=== PATIENT | male | born 1965 | race Caucasian/White ===

== ENCOUNTER 2018-09-25 18:27 | Inpatient (IN) | payer BC ==
[~2018-09-25] VITALS: Ht 157.5 cm; Wt 55.5 kg
--- NOTE | 2018-09-25 18:45 | NUR ---
noted retraction of ribs to left scapular area, and subq ephasema, spoke to BERYL Lopez who ordered Chest Xray, changed pt to level 3
[2018-09-25] MEDS ORDERED: HYDROcodone/acetaminophen 10/325mg tab PO ONE (19:40)
[2018-09-25] MEDS ORDERED: iohexol 300mg/ml 100ml inj. ONE (19:50)
--- NOTE | 2018-09-25 19:52 | NUR ---
Pt transported to CT scan via wheelchair.
[2018-09-25] MEDS ORDERED: NO HOME MEDS (20:21)
--- NOTE | 2018-09-25 20:51 | NUR ---
PT MOVED FROM FAST TRACK TO ED BED 16 FOR ADMISSION AND FURTHER MONITORING.
--- NOTE | 2018-09-25 20:59 | NUR ---
pt moved from bed [facility] to 16 by lenora Lake
[2018-09-25] MEDS ORDERED: temazepam 15mg capsule PO PRN (21:00)
[2018-09-25 21:10] LABS: BASOPHILS % (AUTO) 0.1 % (0-1); EOSINOPHILS % (AUTO) 0.2 % (0-6); HEMATOCRIT 37.9 % (42.0-52.0); HEMOGLOBIN 13.1 g/dl (14.0-17.9); LYMPHOCYTES # (AUTO) 1.2 X10'3 (1.1-4.8); LYMPHOCYTES % (AUTO) 9.4 % (21-51); MEAN CORPUSCULAR HEMOGLOBIN 32.2 PG (27.0-31.0); MEAN CORPUSCULAR HGB CONC 34.5 g/dL (33.0-36.5); MEAN CORPUSCULAR VOLUME 93.2 FL (78-98); MEAN PLATELET VOLUME 6.3 FL (7.4-10.4); MONOCYTES # (AUTO) 0.9 X10'3 (0-0.9); MONOCYTES % (AUTO) 6.8 % (2-12); NEUTROPHILS # (AUTO) 10.5 X10'3 (1.8-7.7); NEUTROPHILS % (AUTO) 83.5 % (42-75); PLATELET COUNT 244 X10'3 (140-440); RED BLOOD COUNT 4.06 X10'6 (4.70-6.10); RED CELL DISTRIBUTION WIDTH 12.7 % (11.5-14.5); WHITE BLOOD COUNT 12.6 X10'3 (4.5-11.0)
[2018-09-25 21:23] LABS: ALANINE AMINOTRANSFERASE 24 U/L (12-78); ALBUMIN 3.6 G/DL (3.4-5.0); ALBUMIN/GLOBULIN RATIO 1.1 (1.1-1.5); ALKALINE PHOSPHATASE 77 IU/L (46-116); ANION GAP 11 (8-16); ASPARTATE AMINO TRANSFERASE 30 U/L (10-37); BILIRUBIN,TOTAL 0.6 MG/DL (0.1-1.0); BLOOD UREA NITROGEN 11 MG/DL (7-18); BUN/CREATININE RATIO 12.4 (5.4-32.0); CALCIUM 8.4 MG/DL (8.5-10.1); CHLORIDE 99 MMOL/L (99-107); CREATINE KINASE 284 U/L (39-308); CREATININE 0.89 MG/DL (0.60-1.10); ETHANOL 0.054 GM/DL (0.0-0.010); GLUCOSE 94 MG/DL (70-104); POTASSIUM 3.8 MMOL/L (3.5-5.1); SODIUM 133 MMOL/L (135-145); TOTAL CARBON DIOXIDE 23.1 MMOL/L (24-32); TOTAL PROTEIN 6.8 G/DL (6.4-8.2); eGFR 89 ML/MIN
[2018-09-25 21:24] LABS: PARTIAL THROMBOPLASTIN TIME 27 SECONDS (22-32)
[2018-09-25 22:00] LABS: CLARITY,URINE CLEAR (Clear); COLOR,URINE YELLOW (Yellow); GLUCOSE, URINE NEGATIVE (Neg); KETONES,URINE NEGATIVE (Neg); LEUKOCYTE ESTERASE ,URINE NEGATIVE (Neg); NITRITES, URINE NEGATIVE (Neg); OCCULT BLOOD,URINE TRACE-INTACT (Neg); PROTEIN,URINE NEGATIVE (Neg); UROBILINOGEN,URINE 0.2 E.U/dL (0.2-1.0)
[2018-09-25 22:01] LABS: UA COLLECTION TYPE VOIDED
[2018-09-25 22:03] LABS: URINE AMPHETAMINE SCREEN NEGATIVE (Neg); URINE BARBITUATE SCREEN NEGATIVE (Neg); URINE BENZODIAZEPINES SCREEN NEGATIVE (Neg); URINE CANNABINOID SCREEN NEGATIVE (Neg); URINE COCAINE SCREEN NEGATIVE (Neg); URINE METHADONE SCREEN NEGATIVE (Neg); URINE OPIATE SCREEN POSITIVE (Neg); URINE PHENCYCLIDINE SCREEN NEGATIVE (Neg)
[2018-09-25 22:14] LABS: BACTERIA,URINE NONE SEEN /HPF (Neg); RBC,URINE 0-2 /HPF (0-2); SQUAMOUS EPITHELIAL CELL,UR FEW /LPF (FEW); WBC,URINE 0-4 /HPF (0-4)
[2018-09-25 22:15] LABS: MUCUS STRANDS FEW /LPF (Neg)
[2018-09-25] MEDS ORDERED: magnesium 2GM in 50ml NS 50 ML IV PRN (23:10)
[2018-09-25] MEDS ORDERED: magnesium Cl slow-release 64mg tablet PO PRN (23:10)
[2018-09-25] MEDS ORDERED: magnesium hydroxide 30ml (MOM) UD suspension PO PRN (23:10)
[2018-09-25] MEDS ORDERED: potassium Cl 20 mEq SR tablet PO PRN ×2 (23:10)
[2018-09-25] MEDS ORDERED: bisacodyl 10mg suppository rectal RC PRN (23:10)
[2018-09-25] MEDS ORDERED: potassium CL 10mEq/100ml bag 100 ML IV PRN ×2 (23:10)
[2018-09-25] MEDS ORDERED: magnesium 4gm in 100ml NS 100 ML IV PRN (23:10)
[2018-09-25] MEDS ORDERED: morphine 2 MG/ML inj. syringe IV PRN (23:10)
[2018-09-25] MEDS ORDERED: ondansetron/PF 4mg/2ml inj IV PRN (23:10)
[2018-09-25] MEDS ORDERED: acetaminophen 325mg tablet PO PRN (23:10)
--- NOTE | 2018-09-25 23:50 | NUR ---
CALLED REPORT TO SURGICAL , REPORT GIVEN PT CONDITION AND TREATMENT PLAN DISCUSSED . RN AGREES TO ASSUME CARE OF PATIENT. PATIENT TRANSPORTED VIA WHEELCHAIR TO FLOOR BY PLATE MOUNTER.
[2018-09-26] VITALS: BP 122/65
[2018-09-26] MEDS: HYDROcodone/acetaminophen 5mg/325mg tablet PO PRN ×2 (00:11→04:42)
[2018-09-26 05:43] LABS: ALBUMIN 3.4 G/DL (3.4-5.0); ANION GAP 6 (8-16); BLOOD UREA NITROGEN 11 MG/DL (7-18); BUN/CREATININE RATIO 11.6 (5.4-32.0); CALCIUM 9.1 MG/DL (8.5-10.1); CHLORIDE 103 MMOL/L (99-107); CREATININE 0.95 MG/DL (0.60-1.10); GLUCOSE 89 MG/DL (70-104); POTASSIUM 4.1 MMOL/L (3.5-5.1); SODIUM 138 MMOL/L (135-145); TOTAL CARBON DIOXIDE 28.8 MMOL/L (24-32); eGFR 82 ML/MIN
[2018-09-26 05:45] LABS: BASOPHILS % (AUTO) 0.2 % (0-1); EOSINOPHILS # (AUTO) 0.2 X10'3 (0-0.9); EOSINOPHILS % (AUTO) 1.7 % (0-6); HEMATOCRIT 38.6 % (42.0-52.0); HEMOGLOBIN 13.3 g/dl (14.0-17.9); LYMPHOCYTES # (AUTO) 3.6 X10'3 (1.1-4.8); MEAN CORPUSCULAR HEMOGLOBIN 32.4 PG (27.0-31.0); MEAN CORPUSCULAR HGB CONC 34.4 g/dL (33.0-36.5); MEAN CORPUSCULAR VOLUME 94.2 FL (78-98); MEAN PLATELET VOLUME 6.7 FL (7.4-10.4); MONOCYTES # (AUTO) 1.1 X10'3 (0-0.9); MONOCYTES % (AUTO) 11.5 % (2-12); NEUTROPHILS % (AUTO) 50.6 % (42-75); PLATELET COUNT 250 X10'3 (140-440)
--- NOTE | 2018-09-26 06:41 | NUR ---
Problems reprioritized. Patient report given, questions answered & plan of care reviewed with Catarino HANSON.
[2018-09-26 07:43] VITALS: BP 105/64
[2018-09-26] MEDS ORDERED: K and/or MAG REPLACEMENT MC SCH (08:00)
[2018-09-26] MEDS ORDERED: docusate sod 100mg capsule PO SCH (08:00)
[2018-09-26] MEDS ORDERED: HYDR-4383 PO (10:34)
[2018-09-26 11:00] VITALS: BP 125/74
--- NOTE | 2018-09-26 12:45 | NUR ---
Patient discharge was done with patient, patient was given medication RX and understands the use of the medication. Patient agreed to follow up in one weeks time and will have shifts at work covered Patient IV was taken out at this time, IV canula was whole and intact upon discharge. Patient left in private vehicle with friend
[2018-09-26] MEDS ORDERED: famotidine 20mg tablet PO SCH (21:00)
== END 2018-09-26 12:50 | disposition home or self-care (01) | DRG 200 ==
LOC: ER 18:27 → SUR 3N 23:45
PROVIDERS: ADMIT Internal Medicine; ATTEND Family Medicine
DX: T79.7XXA Traumatic subcutaneous emphysema, initial encounter (principal); S22.42XA Multiple fractures of ribs, left side, initial encounter for closed fracture; E87.1 Hypo-osmolality and hyponatremia; J90 Pleural effusion, not elsewhere classified; S27.0XXA Traumatic pneumothorax, initial encounter; D64.9 Anemia, unspecified; Z79.899 Other long term (current) drug therapy; V87.8XXA Person injured in other specified noncollision transport accidents involving motor vehicle (traffic), initial encounter; Y93.I9 Activity, other involving external motion; Y92.89 Other specified places as the place of occurrence of the external cause; Y99.8 Other external cause status
CPT/HCPCS: 36415; 71045; 71046; 71260; 80048; 80053; 80305; 80320; 81001; 82550; 83735; 85025; 85610; 85730; 86885; 86900; 86901; 87081; 99285; G0378; Q9967

== ENCOUNTER 2022-03-11 14:15 | Emergency (ER) | payer BC ==
[~2022-03-11] VITALS: Ht 160 cm; Wt 56.8 kg
[~2022-03-11 14:15] MED LIST: HYDR-4383 PO
[2022-03-11 14:41] LABS: BASOPHILS % (AUTO) 0.4 % (0-1); EOSINOPHILS % (AUTO) 0.3 % (0-6); HEMATOCRIT 38.5 % (42.0-52.0); HEMOGLOBIN 13.1 g/dl (14.0-17.9); LYMPHOCYTES # (AUTO) 1.4 X10'3 (1.1-4.8); LYMPHOCYTES % (AUTO) 15.2 % (21-51); MEAN CORPUSCULAR HEMOGLOBIN 32.7 PG (27.0-31.0); MEAN CORPUSCULAR VOLUME 96.2 FL (78-98); MEAN PLATELET VOLUME 6.4 FL (7.4-10.4); MONOCYTES # (AUTO) 0.8 X10'3 (0-0.9); MONOCYTES % (AUTO) 9.1 % (2-12); NEUTROPHILS # (AUTO) 6.8 X10'3 (1.8-7.7); PLATELET COUNT 298 X10'3 (140-440); RED CELL DISTRIBUTION WIDTH 14.1 % (11.5-14.5); WHITE BLOOD COUNT 9.1 X10'3 (4.5-11.0)
[2022-03-11 14:54] LABS: ALANINE AMINOTRANSFERASE 15 U/L (12-78); ALBUMIN 3.8 G/DL (3.4-5.0); ALBUMIN/GLOBULIN RATIO 1.1 (1.1-1.5); ALKALINE PHOSPHATASE 87 IU/L (46-116); ANION GAP 3 (8-16); ASPARTATE AMINO TRANSFERASE 25 U/L (10-37); BILIRUBIN,TOTAL 0.5 MG/DL (0.1-1.0); BLOOD UREA NITROGEN 12 MG/DL (7-18); BUN/CREATININE RATIO 10.2 (5.4-32.0); CALCIUM 8.6 MG/DL (8.5-10.1); CHLORIDE 99 MMOL/L (99-107); CREATININE 1.18 MG/DL (0.60-1.10); POTASSIUM 4.1 MMOL/L (3.5-5.1); SODIUM 137 MMOL/L (135-145); TOTAL CARBON DIOXIDE 34.7 MMOL/L (24-32); TOTAL PROTEIN 7.2 G/DL (6.4-8.2); eGFR 63 ML/MIN
[2022-03-11 15:03] LABS: GLUCOSE 105 MG/DL (70-104)
[2022-03-11 15:29] VITALS: BP 102/62
== END 2022-03-12 02:05 | disposition left against medical advice (07) ==
LOC: ER 14:15
DX: R42 Dizziness and giddiness (principal); Z53.21 Procedure and treatment not carried out due to patient leaving prior to being seen by health care provider
CPT/HCPCS: 36415; 80053; 83735; 83880; 84484; 85025; 93005

== ENCOUNTER 2024-07-05 10:49 | Inpatient (IN) | payer BC, OTHER ==
[~2024-07-05] VITALS: Ht 160 cm; Wt 58.0 kg
[2024-07-05 12:27] LABS: BASOPHILS % (AUTO) 0.5 % (0-1); EOSINOPHILS # (AUTO) 0.1 X10'3 (0-0.9); EOSINOPHILS % (AUTO) 0.7 % (0-6); HEMOGLOBIN 13.3 g/dl (14.0-17.9); LYMPHOCYTES # (AUTO) 1.5 X10'3 (1.1-4.8); LYMPHOCYTES % (AUTO) 19.1 % (21-51); MEAN CORPUSCULAR HEMOGLOBIN 32.1 PG (27.0-31.0); MEAN CORPUSCULAR HGB CONC 34.2 g/dL (33.0-36.5); MEAN CORPUSCULAR VOLUME 94.1 FL (78-98); MEAN PLATELET VOLUME 6.4 FL (7.4-10.4); MONOCYTES # (AUTO) 0.9 X10'3 (0-0.9); MONOCYTES % (AUTO) 11.1 % (2-12); NEUTROPHILS # (AUTO) 5.4 X10'3 (1.8-7.7); NEUTROPHILS % (AUTO) 68.6 % (42-75); PLATELET COUNT 313 X10'3 (140-440); RED BLOOD COUNT 4.14 X10'6 (4.70-6.10); RED CELL DISTRIBUTION WIDTH 14.8 % (11.5-14.5); WHITE BLOOD COUNT 7.9 X10'3 (4.5-11.0)
[2024-07-05] MEDS ORDERED: VANCOMYCIN 1GM 200ML H20 (PEG) 200 ML IV ONE (12:35)
--- NOTE | 2024-07-05 12:41 | Physician Documentation ---
History of Present Illness ~ Chief Complaint: Wound Stated Complaint: ABSCESS Time Seen by MD: 12:34 Primary Medical Doctor: [facility] HPI This is a 59-year-old gentleman who for the last several days has been experiencing a wound on the left buttock. He has been seen a [facility] urgent [facility], prescribed antibiotics and but they appear to be ineffective and his wound is getting worse. There is copious amounts of purulent discharge that he is able to express from the wound daily. He has a attempted to treat in addition to antibiotics with the Epsom salt and expressing purulence. No particular palliating or aggravating factors. This never happened in the past. Denies any other symptoms. Denies any concerns regarding alcohol or illicit substance use Tetanus within 5 years?: Yes (2017) Medication Reconciliation Allergies: Coded Allergies: No Known Allergies (Unverified , 07/05/24) Scheduled Acetaminophen (Tylenol), 650 MG PO Q6H PRN PAIN, (Reported) Sulfamethoxazole/Trimethoprim (Bactrim 400-80 Mg Tablet), 2 TAB PO Q12H, (Reported) Discontinued Medications Hydrocodone/Acetaminophen ([place] 5-325 Tablet), 1 TAB PO Q4H PRN for moderate pain 4-6 Discontinued Reason: patient no longer taking Past Medical History Past Medical History: No Pertinent History Past Surgical History: noncontributory Alcohol Use: Occasionally Lives In: Home Review of Systems ROS 10 point review of systems was performed and unless noted above in HPI is negative for acute process/complaint. Physical Exam Vital Signs: Temperature: 98.2, Heart Rate: 65, Respiratory Rate: 18, Pulse Oximetry: 95, Weight: 55.910 Physical Exam GENERAL: Awake, alert, oriented, GCS 15, no apparent distress, non-toxic appearing, answers questions, follows commands appropriately. HEENT: Atraumatic, normocephalic, pupils equal, extraocular muscles intact, sclerae anicteric, mucus membranes moist, oropharynx is clear, no stridor. NECK: supple, full active range of motion, trachea midline, no thyromegaly, no lymphadenopathy, no JVD. CARDIOVASCULAR: regular rate/rhythm, no murmurs/gallops/rubs, Pulses are 2+ in all extremities and symmetric. Capillary refill less than 2 seconds. PULMONARY: Nonlabored, good air movement ,no respiratory distress, speaking in full sentences, clear to auscultation bilaterally, no wheezing, no ronchi, no rales, no accessory muscle use. GASTROINTESTINAL: Soft, non-tender, non-distended, normal active bowel sounds, no organomegaly, no pulsatile masses, no CVA tenderness. NEUROLOGIC: Lucid with normal mental status. Normal facial symmetry. Moves all extremities symmetrically and with purpose. No truncal ataxia. Speech is fluid without evidence of dysarthria or aphasia, no focal deficits appreciated. MUSCULOSKELETAL: There is full range of motion of all extremities. There is no joint pain or joint swelling or joint erythema. There is no muscle pain or tenderness or swelling. EXTREMITIES: warm, well-perfused, no cyanosis, no clubbing, no edema, no acute deformities. Skin: warm, dry, no rashes or lesions, no jaundice, no petechiae orpurpura. No ecchymosis. PSYCHIATRIC: Normal affect, normal insight, normal concentration. Focused exam: There is an area of approximately 15 cm of induration with a central ulceration and the wound with a copious amounts of purulent discharge. Tender to palpation reproducing chief complaint. Progress Results/Orders Results/Orders Orders - DENYS MARTINS DO Culture Blood (07/05/24 11:04) Monitor (07/05/24 11:04) Oxygen (07/05/24 11:04) Saline Lock (07/05/24 11:04) Ct Abdomen Pelvis (07/05/24 13:15) Culture Body Fluid Order (07/05/24 12:34) Page Hospitalist (07/05/24 16:50) Fill Out Med Reconciliation (07/05/24 16:50) Completed Orders - DENYS MARTINS DO Cbc/Diff (07/05/24 11:04) Procalcitonin (07/05/24 11:04) BMP (07/05/24 11:04) Lacticsepsis (07/05/24 11:04) Ct Abdomen Pelvis (07/05/24 13:15) ESR (07/05/24 12:34) Normal Saline 1000ml (Sodium Chloride 10 (07/05/24 12:35) Piperacillin/Tazo 3.375gm/50ml (Zosyn 3. (07/05/24 12:35) Vancomycin/Ns 1 Gm Add-[place] (Vancomyc (07/05/24 12:39) C-Reactive Protein (07/05/24 12:03) Iohexol 300mg/Ml 100ml Inj. (Omnipaque-3 (07/05/24 13:07) Hgb A1c (07/05/24 12:03) Vital Signs 07/05/24 07/05/24 07/05/24 10:58 13:41 13:47 Temp 98.2 98.2 Pulse 65 67 Resp 18 16 15 B/P (MAP) 113/76 (88) Pulse Ox 95 100 Laboratory Tests Test 07/05/24 12:03 White Blood Count 7.9 Red Blood Count 4.14 L Hemoglobin 13.3 L Hematocrit 39.0 L Mean Corpuscular Volume 94.1 Mean Corpuscular Hemoglobin 32.1 H Mean Corpuscular Hemoglobin Concent 34.2 Red Cell Distribution Width 14.8 H Platelet Count 313 Mean Platelet Volume 6.4 L Neutrophils (%) (Auto) 68.6 Lymphocytes (%) (Auto) 19.1 L Monocytes (%) (Auto) 11.1 Eosinophils (%) (Auto) 0.7 Basophils (%) (Auto) 0.5 Neutrophils # (Auto) 5.4 Lymphocytes # (Auto) 1.5 Monocytes # (Auto) 0.9 Eosinophils # (Auto) 0.1 Basophils # (Auto) 0.0 CBC Comment Erythrocyte Sedimentation Rate 57 H Sodium Level 136 Potassium Level 4.3 Chloride Level 102 Carbon Dioxide Level 28.0 Anion Gap 6 L Blood Urea Nitrogen 15 Creatinine 1.00 Estimated GFR/1.73 m2 76 BUN/Creatinine Ratio 15.0 Glucose Level 86 Hemoglobin A1c 4.3 L Lactic Acid Level 0.8 Calcium Level 8.5 C-Reactive Protein 3.87 H Albumin 3.2 L Procalcitonin < 0.05 Chemistry Comments Microbiology Date/Time Source Procedure Growth Status 07/05/24 12:08 Blood Arm Right Blood Culture - Preliminary NO GROWTH AFTER 1 DAY Resulted Medical Decision Making Findings Facility Status: [facility], [facility] process The plan was discussed with the patient, who demonstrates clear understanding of the plan and is in agreement with the plan unless otherwise noted in the chart. All questions have been answered, all concerns were addressed unless otherwise documented. I was available throughout their ED stay for frequent reassessment and questions. Differential Diagnoses (considered and possible or likely): [Left buttock abscess, failure of outpatient treatment, cellulitis, less likely necrotizing infection, clinically not consistent with a perianal/perirectal abscess] ??Differential Diagnoses (considered and unlikely, not requiring evaluation currently): [See above] MDM Data Please see [facility] for the following: Independent Historians and external Records Review. Historian: [Patient] Independent Historians: ?[None] Medication Management: [Reviewed medication list] Social History and determinants: [Reviewed] Please see the body of the note for the following: Any independent interpretations of ECG, imaging studies. All vitals signs/haemodynamics, ordered tests were independently reviewed and interpreted by myself. Nursing triage complaint and vitals reviewed, additional nursing notes were reviewed as available and I agree unless otherwise noted or documented in contradiction in the chart Vital Signs: Independently reviewed Labs: Independently interpreted Imaging: Independently interpreted Old Medical Records: Independently reviewed, see HPI for relevant summary and information Pulse Oximetry: [97%] interpreted as [normal on room air] by me [Tank Pumper Panelboard: [Regular Rate, Regular rhythm, no ectopy, NSR] reviewed and interpreted by me] Additionally notably showing: [Hemodynamically he is stable. Imaging notable for phlegmon, no discrete abscess. Likely will require debridement and wound ca re.] Tests considered but not ordered include: [Not applicable] Social Determinants of Health Impact: Patient was evaluated in [facility], or [facility] [place] healthcare due to below par ratio of patient to medical providers. [] Comorbid Conditions Impacting Present Evaluation and Care/Treatment: [None known] Management Discussions with other Healthcare Providers: [Hospitalist regarding admission] Treatment and Disposition Medication Management (Given or considered): [Antibiotics]. See EMR for details Consideration for Hospitalization/Escalation/Deescalation of Care: Admission for observation has been considered, and appears to be necessary due to failure of outpatient treatment ?ED Course:?[No clinical deterioration] ?Shared decision making:?[] Code status:?FULL Please see the full Electronic Medical Record for full details of nursing documentation, medications list, other records of complete past medical history and conditions, vital signs, laboratory studies, and any radiologic study interpretations by radiologists. Portions of this note were completed using [employer] dictation software and as a result there may exist minor errors in spelling. I have reviewed elements of past family and social history and agree as included in note. Departure Disposition: ADMITTED INPATIENT Admitted to Inpatient Unit: to hospitalist Impression: Primary Impression: Left buttock abscess Additional Impressions: Failure of outpatient treatment Cellulitis of left buttock Deficient knowledge of wound care Condition: Stable Referrals: NO PRIMARY CARE PROVIDER (PCP) Signature Scribe Signature: No scribe Attestation: This note accurately reflects clinical decisions, work performed by myself, DO ELIEZER Hood NICHOLAS M DO July 05, 2024 12:41
[2024-07-05 12:46] LABS: ALBUMIN 3.2 G/DL (3.4-5.0); ANION GAP 6 (8-16); BLOOD UREA NITROGEN 15 MG/DL (7-18); CALCIUM 8.5 MG/DL (8.5-10.1); CHLORIDE 102 MMOL/L (99-107); POTASSIUM 4.3 MMOL/L (3.5-5.1); SODIUM 136 MMOL/L (135-145); eCRCL 60 ML/MIN; eGFR 76 ML/MIN
[2024-07-05] MEDS ORDERED: iohexol 300mg/ml 100ml inj. ONE (13:07)
[2024-07-05] MEDS: normal saline 1000ML IV soln IVB ONE (13:28)
[2024-07-05] MEDS: vancomycin/NS 1 GM ADD-VANTAGE 250 ML IV ONE (13:28)
[2024-07-05] MEDS: piperacillin/tazo 3.375gm/50ml 50 ML IV ONE (13:28)
[2024-07-05 13:35] LABS: C-REACTIVE PROTEIN 3.87 MG/DL (0.0-0.5)
[2024-07-05 13:40] LABS: GLUCOSE 86 MG/DL (70-104)
--- NOTE | 2024-07-05 14:09 | RADIOLOGY REPORT ---
Exam: CT CT ABDOMEN PELVIS W/ IV CONTRAST History: L buttock large wound, abscess/tunnelling TECHNIQUE: Multiple contiguous axial CT images of the abdomen and pelvis were obtained with intraveno us contrast. The images were reformatted to generate coronal and sagittal reconstructions. 100 cc of Omnipaque 350 contrast was injected intravenously. All CT scans at this medical facility are performed using dose modulation techniques as appropriate t o a performed exam including the following:Automated exposure control was utilized; adjustment of the MA and/or KV according to patient size; and use of iterative reconstruction technique. Radiation Dose Information: CT Dose: CTDI volume is 7 mGy. Dose-length product is 342 mGy*cm Comparison: None FINDINGS: The liver, gallbladder, pancreas, kidneys, adrenal glands, and spleen appear within normal limits. There is no evidence of retroperitoneal lymphadenopathy. There is no free fluid or free air. The stomach grossly appears unremarkable. The small and large bowel loops demonstrate normal caliber and distribution. The appendix is not seen in the right lower quadrant abdomen. There are no seconda ry signs of acute appendicitis. The abdominal aorta and IVC appear within normal limits. The bladder appears within normal limits the degree of distention. Pelvic organ is unremarkable. Ther e is no evidence of a pelvic mass or lymphadenopathy. There is no free fluid collection. Lung bases are clear. There is no acute osseous abnormality. There is a 3.2 cm left posterolateral irregular subcutaneous soft tissue density which may represent phlegmon. There is overlying skin thickening and moderate surrounding fat stranding. There is no disc rete fluid collection to suggest abscess. There is no fistulous track into the underlying musculatur e. IMPRESSION: 1. 3.2 cm left posterolateral irregular subcutaneous soft tissue density may represent phlegmon. Ther e is overlying skin thickening and moderate surrounding fat stranding likely secondary to associated cellulitis. There is no discrete fluid collection to suggest abscess. 2. There is no acute process in the abdomen and pelvis. HS:Y
[2024-07-05] MEDS ORDERED: acetaminophen 325mg tablet PO PRN (17:45)
[2024-07-05] MEDS ORDERED: morphine 2 MG/ML inj. syringe IV PRN (17:45)
[2024-07-05] MEDS ORDERED: HYDROcodone/acetaminophen 5mg/325mg tablet PO PRN (17:45)
[2024-07-05] MEDS ORDERED: ondansetron/PF 4mg/2ml inj IV PRN (17:45)
--- NOTE | 2024-07-05 17:57 | HISTORY AND PHYSICAL-Residence ---
History & Physical Providers to CC Resident Creating Document: BRITTANY CAMARGO RES ~ History of Present Illness Primary Medical Doctor: [facility] Reason for Admit\Complaint: left buttock abscess History of Present Illness Patient is a 59-year-old male with no significant past medical history who presents for evaluation and management of a draining abscess in the left buttock. He was referred by his primary care provider at [facility]. The patient reports administering testosterone injection into his buttocks twice weekly and suspects this may have contributed to the abscess. Approximately two weeks ago, he noticed a small pimple in the area which later popped. Over the following days, he developed increasing swelling irritation and pain. He was evaluated by his primary care physician and started on Bactrim one week ago. Despite antibiotic therapy, the abscess continued to enlarge, becoming very painful and eventually draining purulent material spontaneously. He attempted to manage it at home with Sitz baths, but symptoms persisted. Today, due to ongoing drainage and discomfort, he followed with his primary care physician and was referred to [facility] for further evaluation and management. Allergies: Coded Allergies: No Known Allergies (Unverified , 07/05/24) Home Medications Home Medications Active B[place] 5-325 Tablet (Hydrocodone/Acetaminophen) 1 Each Tablet 1 Tab PO Q4H PRN Past Medical History Past Medical History No significant medical history Past Surgical History Surgical History Comment Minor orthopedic surgeries Past Social History Social History Comment Patient lives with his significant other's, denies smoking cigarettes, drinks beer occasionally. Denies using recreational drugs. Alcohol Use: Occasionally Lives In: Home ROS All Other Systems: Reviewed and Negative ROS As stated above in the HPI, otherwise all systems are reviewed and negative. Exam Vitals: Vital Signs Date Time Temp Pulse Resp B/P (MAP) Pulse Ox O2 Delivery O2 Flow Rate FiO2 07/05/24 13:47 98.2 67 15 113/76 (88) 100 General Appearance: Well developed, well nourished. Awake, alert and oriented x4, resting comfortably in bed, in no acute distress. HEENT: Atraumatic, normocephalic, ROSA, EOMI. Normal oropharynx, moist oral mucosa. Neck: Trachea midline. Supple, normal ROM. No JVD, bruit, lymphadenopathy or masses, or other lesions. Respiratory: Chest wall is symmetric and without deformity. No signs of respiratory distress. Equal breath sounds bilaterally. No wheeze, rub, Rales or crackles. Cardiac: RRR, no murmur, rub or gallop. Normal S1 and S2. GI: No tenderness. Abdomen symmetric, nondistended, soft, normal bowel sounds x4 quadrant normoactive. No guarding, no rebound or rigidity. No hepatosplenomegaly. No masses, no bruit, no flank pain bilaterally. Extremities: 5 x 3 cm fluctuant mildly tender abscess in the left buttock with surrounding induration. Surrounding erythema measures approximately 13 x 8 cm. The area is warm to touch, with active purulent drainage. Skin: Intact, dry, warm, no rashes or petechia. Neuro: Speech is clear, alert and oriented x4. No sensory or motor deficit, DTRs normal. Cranial nerves II to XII intact. Psych: Normal affect, good eye contact, no apparent hallucination, normal speech. Diagnostic Data Last Recorded Lab Results: 07/05/24 1203 07/05/24 1203 Advance Care Planning Advanced Care plannin - 30 Minutes Additional Plan Assessment and plan: Patient is a 59-year-old male with no significant past medical history who presents for evaluation and management of a draining abscess in the left buttock. He was referred by his primary care provider at [facility]. On exam, there is a 5 x 3 cm fluctuant, mildly tender, draining abscess in the left buttock. There is also surrounding induration and erythema. Erythema measures approximately 13 x 8 cm. The area is warm to touch, with active drainage. Purulent draining abscess left buttock: No signs of sepsis/SIRS CT finding suggests phlegmon, ESR elevated No systemic symptoms Received vancomycin and Zosyn in ER We will continue vancomycin and ceftriaxone We will consult surgeon for I&D - NPO after midnight Wound care consult requested Pain management; Bolt, and morphine as needed DVT prophylaxis: Lovenox Code status: Full code Brittany Camargo Internal Medicine Resident Date of Service: July 05, 2024 Billing Provider: ROMEO ART MD,BRITTANY, RES July 05, 2024 17:57
[2024-07-05] MEDS: normal saline 1000ml 1,000 ML IV SCH (18:19)
[2024-07-05 18:31] LABS: HEMOGLOBIN A1C 4.3 % (4.5-6.2)
[2024-07-05] MEDS ORDERED: SULF1TAB48 PO (18:33)
[2024-07-05 19:10] VITALS: BP 169/70; PULSE 78; RESP 16; TEMP 98.8; O2SAT 97
[2024-07-05] MEDS ORDERED: ACET-1008 PO (23:18)
[2024-07-06] MEDS: vancomycin/NS 1 GM ADD-VANTAGE 250 ML IV SCH (01:41)
[2024-07-06 04:38] VITALS: BP 105/59; PULSE 67; RESP 18; TEMP 97.9; O2SAT 97
[2024-07-06 04:56] LABS: BASOPHILS % (AUTO) 0.6 % (0-1); EOSINOPHILS # (AUTO) 0.1 X10'3 (0-0.9); EOSINOPHILS % (AUTO) 1.4 % (0-6); HEMATOCRIT 35.8 % (42.0-52.0); HEMOGLOBIN 12.2 g/dl (14.0-17.9); LYMPHOCYTES # (AUTO) 2.1 X10'3 (1.1-4.8); LYMPHOCYTES % (AUTO) 26.5 % (21-51); MEAN CORPUSCULAR HGB CONC 34.1 g/dL (33.0-36.5); MEAN CORPUSCULAR VOLUME 93.8 FL (78-98); MEAN PLATELET VOLUME 6.2 FL (7.4-10.4); MONOCYTES % (AUTO) 13.4 % (2-12); NEUTROPHILS # (AUTO) 4.5 X10'3 (1.8-7.7); NEUTROPHILS % (AUTO) 58.1 % (42-75); PLATELET COUNT 283 X10'3 (140-440); RED BLOOD COUNT 3.81 X10'6 (4.70-6.10); RED CELL DISTRIBUTION WIDTH 14.7 % (11.5-14.5); WHITE BLOOD COUNT 7.8 X10'3 (4.5-11.0)
[2024-07-06 05:12] LABS: ALANINE AMINOTRANSFERASE 16 U/L (12-78); ALBUMIN 2.7 G/DL (3.4-5.0); ALBUMIN/GLOBULIN RATIO 0.7 (1.1-1.5); ALKALINE PHOSPHATASE 72 IU/L (46-116); ANION GAP 5 (8-16); ASPARTATE AMINO TRANSFERASE 15 U/L (10-37); BILIRUBIN,TOTAL 0.3 MG/DL (0.1-1.0); BLOOD UREA NITROGEN 14 MG/DL (7-18); BUN/CREATININE RATIO 14.9 (10.0-20.0); CALCIUM 7.9 MG/DL (8.5-10.1); CHLORIDE 105 MMOL/L (99-107); CHOL/HDL RATIO 3.4 (0.00-4.99); CHOLESTEROL 118 MG/DL (0-200); CREATININE 0.94 MG/DL (0.60-1.10); HDL CHOLESTEROL 35 MG/DL (35-60); LDL CHOLESTEROL 67 MG/DL (50-100); POTASSIUM 4.1 MMOL/L (3.5-5.1); SODIUM 138 MMOL/L (135-145); TOTAL CARBON DIOXIDE 27.9 MMOL/L (24-32); TOTAL PROTEIN 6.6 G/DL (6.4-8.2); TRIGLYCERIDES 90 MG/DL (20-135); eCRCL 66 ML/MIN; eGFR 82 ML/MIN
[2024-07-06 05:22] LABS: GLUCOSE 83 MG/DL (70-104)
[2024-07-06 06:00] VITALS: BP 118/67; PULSE 72; RESP 18; TEMP 98.2; O2SAT 98
[2024-07-06] MEDS: enoxaparin 40mg/0.4ml syringe SUBCUT SCH (07:48)
[2024-07-06] MEDS: CefTRIAXone/D5W-Rocephin 1gm 50 ML IV SCH (07:53)
[2024-07-06 10:00] VITALS: BP 112/65; PULSE 66; RESP 16; TEMP 98.8; O2SAT 98
--- NOTE | 2024-07-06 14:53 | PROGRESS NOTE- Residence ---
Progress Note - Resident Providers to CC Resident Creating Document: COLE CAMARGO RES ~ Antibiotic Timeout Antibiotic Ordered?: Yes Subjective Patient was seen and examined at bedside. No overnight issues or events reported. Pain is controlled with current management. Wound care applied a dressing on his left gluteal/buttock abscess. Objective Vital Signs Date Time Temp Pulse Resp B/P (MAP) Pulse Ox O2 Delivery O2 Flow Rate FiO2 07/06/24 10:00 98.8 66 16 112/65 (81) 98 Room Air General Appearance: Well developed, well nourished. Awake, alert and oriented x4, resting comfortably in bed, in no acute distress. Respiratory: Chest wall is symmetric and without deformity. No signs of respiratory distress. Equal breath sounds bilaterally. No wheeze, rub, Rales or crackles. Cardiac: RRR, no murmur, rub or gallop. Normal S1 and S2. GI: No tenderness. Abdomen symmetric, nondistended, soft, normal bowel sounds x4 quadrant normoactive. No guarding, no rebound or rigidity. No hepatosplenomegaly. No masses, no bruit, no flank pain bilaterally. Extremities: 5 x 3 cm fluctuant mildly tender abscess in the left buttock with surrounding induration. Surrounding erythema measures approximately 13 x 8 cm. The area is warm to touch, with active purulent drainage. Dressing applied Neuro: Speech is clear, alert and oriented x4. No sensory or motor deficit, DTRs normal. Cranial nerves II to XII intact. Psych: Normal affect, good eye contact, no apparent hallucination, normal speech. Result Diagram: 07/06/24 0431 07/06/24 0431 Advance Care Planning Advanced Care plannin - 30 Minutes Assessment Assessment Patient is a 59-year-old male with no significant past medical history who presents for evaluation and management of a draining abscess in the left buttock. He was referred by his primary care provider at [facility]. On exam, there is a 5 x 3 cm fluctuant, mildly tender, draining abscess in the left buttock. There is also surrounding induration and erythema. Erythema measures approximately 13 x 8 cm. The area is warm to touch, with active drainage. Plan Plan Purulent draining abscess left buttock: No signs of sepsis/SIRS CT finding suggests phlegmon, ESR elevated No systemic symptoms Received vancomycin and Zosyn in ER We will continue vancomycin and ceftriaxone We will consult surgeon for I&D - NPO after midnight Wound care consult requested Pain management; Elizabeth, and morphine as needed July 06, 2024: Pain controlled with current management Continue vancomycin and ceftriaxone Continue IV hydration Wound care evaluated the patient, applied dressing Wound culture ordered Dr. Toledo consulted for I&D - patient is NPO, not on any blood thinners DVT prophylaxis: Lovenox Code status: Full code Cole Camargo Internal Medicine Resident Date of Service: July 06, 2024 Billing Provider: ROMEO ART MD,COLE, RES July 06, 2024 14:53
[2024-07-06 18:00] VITALS: BP 108/67; PULSE 62; RESP 19; TEMP 97.4; O2SAT 97
--- NOTE | 2024-07-06 19:25 | PROGRESS NOTE ---
Progress Note ID Providers to CC ~ Progress Note Progress Note: no abscess on ct/cont iv antnibx JUAN JOSE TRINH MD July 06, 2024 19:25
[2024-07-06 22:00] VITALS: BP 104/54; PULSE 64; RESP 14; TEMP 98.4; O2SAT 97
[2024-07-07] MEDS: VANCOMYCIN LEVEL IV ONE (01:49)
[2024-07-07 01:52] LABS: BASOPHILS # (AUTO) 0.1 X10'3 (0-0.2); BASOPHILS % (AUTO) 0.8 % (0-1); EOSINOPHILS # (AUTO) 0.1 X10'3 (0-0.9); EOSINOPHILS % (AUTO) 2.2 % (0-6); HEMATOCRIT 36.4 % (42.0-52.0); HEMOGLOBIN 12.6 g/dl (14.0-17.9); LYMPHOCYTES # (AUTO) 2.2 X10'3 (1.1-4.8); LYMPHOCYTES % (AUTO) 33.3 % (21-51); MEAN CORPUSCULAR HEMOGLOBIN 32.4 PG (27.0-31.0); MEAN CORPUSCULAR HGB CONC 34.6 g/dL (33.0-36.5); MEAN CORPUSCULAR VOLUME 93.8 FL (78-98); MEAN PLATELET VOLUME 6.1 FL (7.4-10.4); MONOCYTES % (AUTO) 14.7 % (2-12); NEUTROPHILS # (AUTO) 3.3 X10'3 (1.8-7.7); PLATELET COUNT 287 X10'3 (140-440); RED BLOOD COUNT 3.89 X10'6 (4.70-6.10); RED CELL DISTRIBUTION WIDTH 14.6 % (11.5-14.5); WHITE BLOOD COUNT 6.7 X10'3 (4.5-11.0)
[2024-07-07 02:06] LABS: ALANINE AMINOTRANSFERASE 15 U/L (12-78); ALBUMIN 2.7 G/DL (3.4-5.0); ALBUMIN/GLOBULIN RATIO 0.7 (1.1-1.5); ALKALINE PHOSPHATASE 76 IU/L (46-116); ANION GAP 6 (8-16); ASPARTATE AMINO TRANSFERASE 22 U/L (10-37); BILIRUBIN,TOTAL 0.3 MG/DL (0.1-1.0); BLOOD UREA NITROGEN 13 MG/DL (7-18); BUN/CREATININE RATIO 14.1 (10.0-20.0); CALCIUM 8.1 MG/DL (8.5-10.1); CHLORIDE 105 MMOL/L (99-107); CREATININE 0.92 MG/DL (0.60-1.10); POTASSIUM 4.1 MMOL/L (3.5-5.1); SODIUM 139 MMOL/L (135-145); TOTAL PROTEIN 6.8 G/DL (6.4-8.2); eCRCL 68 ML/MIN; eGFR 84 ML/MIN
[2024-07-07 02:09] LABS: GLUCOSE 126 MG/DL (70-104); VANCOMYCIN,TROUGH 10.8 ug/mL (10.0-20.0)
[2024-07-07 06:00] VITALS: BP 115/87; PULSE 63; RESP 20; TEMP 98; O2SAT 97
[2024-07-07 08:00] VITALS: RESP 16
[2024-07-07 10:00] VITALS: BP 111/65; PULSE 70; RESP 16; TEMP 97.9; O2SAT 98
[2024-07-07 11:57] LABS: URINE AMPHETAMINE SCREEN NEGATIVE (Neg); URINE BARBITUATE SCREEN NEGATIVE (Neg); URINE BENZODIAZEPINES SCREEN NEGATIVE (Neg); URINE CANNABINOID SCREEN NEGATIVE (Neg); URINE COCAINE SCREEN NEGATIVE (Neg); URINE METHADONE SCREEN NEGATIVE (Neg); URINE OPIATE SCREEN NEGATIVE (Neg); URINE PHENCYCLIDINE SCREEN NEGATIVE (Neg)
[2024-07-07] MEDS: VANCOmycin 1250MG/NS 250ml Bag 250 ML IV SCH (14:19)
--- NOTE | 2024-07-07 14:38 | PROGRESS NOTE ---
Progress Note ID Providers to CC ~ Progress Note Progress Note: complains of pain/needs repeat ct to exclude abscess tomorrow JUAN JOSE TRINH MD July 07, 2024 14:38
[2024-07-07 18:00] VITALS: BP 119/75; PULSE 77; RESP 16; TEMP 98.3; O2SAT 96
--- NOTE | 2024-07-07 18:48 | PROGRESS NOTE- Residence ---
Progress Note - Resident Providers to CC Resident Creating Document: COLE CAMARGO RES ~ Antibiotic Timeout Antibiotic Ordered?: Yes Subjective Patient was seen and examined at bedside. No overnight issues or events reported. Pain is controlled with current management. Wound care applied a dressing on his left gluteal/buttock abscess. Objective Vital Signs Date Time Temp Pulse Resp B/P (MAP) Pulse Ox O2 Delivery O2 Flow Rate FiO2 07/07/24 10:00 97.9 70 16 111/65 (80) 98 Room Air General Appearance: Well developed, well nourished. Awake, alert and oriented x4, resting comfortably in bed, in no acute distress. Respiratory: Chest wall is symmetric and without deformity. No signs of respiratory distress. Equal breath sounds bilaterally. No wheeze, rub, Rales or crackles. Cardiac: RRR, no murmur, rub or gallop. Normal S1 and S2. GI: No tenderness. Abdomen symmetric, nondistended, soft, normal bowel sounds x4 quadrant normoactive. No guarding, no rebound or rigidity. No hepatosplenomegaly. No masses, no bruit, no flank pain bilaterally. Extremities: 5 x 3 cm fluctuant mildly tender abscess in the left buttock with surrounding induration. Surrounding erythema measures approximately 13 x 8 cm. The area is warm to touch, with active purulent drainage. Dressing applied Neuro: Speech is clear, alert and oriented x4. No sensory or motor deficit, DTRs normal. Cranial nerves II to XII intact. Psych: Normal affect, good eye contact, no apparent hallucination, normal speech. Result Diagram: 07/07/24 0135 07/07/24 0135 Advance Care Planning Advanced Care plannin - 30 Minutes Assessment Assessment Patient is a 59-year-old male with no significant past medical history who presents for evaluation and management of a draining abscess in the left buttock. He was referred by his primary care provider at [facility]. On exam, there is a 5 x 3 cm fluctuant, mildly tender, draining abscess in the left buttock. There is also surrounding induration and erythema. Erythema measures approximately 13 x 8 cm. The area is warm to touch, with active drainage. Plan Plan Purulent draining abscess left buttock: No signs of sepsis/SIRS CT finding suggests phlegmon, ESR elevated No systemic symptoms Received vancomycin and Zosyn in ER We will continue vancomycin and ceftriaxone We will consult surgeon for I&D - NPO after midnight Wound care consult requested Pain management; [place], and morphine as needed July 06, 2024: Pain controlled with current management Continue vancomycin and ceftriaxone Continue IV hydration Wound care evaluated the patient, applied dressing Wound culture ordered Dr. Toledo consulted for I&D - patient is NPO, not on any blood thinners July 07, 2024: Continue vancomycin and ceftriaxone IV hydration discontinued The patient was seen and examined at the bedside. Although his pain is well controlled and he reports no current issues, he expressed frustration about being NPO yesterday until 7:00 p.m. when the procedure did not occur. The surgeon reviewed the CT scan findings and concluded that I&D was not necessary at this time. On exam, the gluteal abscess remains fluctuant, with an angry appearance, fluid collection, and an overlying black scar with necrotic tissues. I believe the abscess requires I&D, and debridement. We will consult the on-call surgeon again tomorrow for further evaluation. DVT prophylaxis: Lovenox Code status: Full code Cole Camargo Internal Medicine Resident Date of Service: July 07, 2024 Billing Provider: ROMEO ART MD,COLE, RES July 07, 2024 18:48
[2024-07-07 22:00] VITALS: BP 133/80; PULSE 74; RESP 20; TEMP 98.7; O2SAT 98
[2024-07-08 05:16] LABS: BASOPHILS # (AUTO) 0.1 X10'3 (0-0.2); BASOPHILS % (AUTO) 0.8 % (0-1); EOSINOPHILS # (AUTO) 0.1 X10'3 (0-0.9); EOSINOPHILS % (AUTO) 2.1 % (0-6); HEMATOCRIT 35.8 % (42.0-52.0); HEMOGLOBIN 12.2 g/dl (14.0-17.9); LYMPHOCYTES # (AUTO) 2.4 X10'3 (1.1-4.8); LYMPHOCYTES % (AUTO) 32.8 % (21-51); MEAN CORPUSCULAR HEMOGLOBIN 31.7 PG (27.0-31.0); MEAN CORPUSCULAR HGB CONC 33.9 g/dL (33.0-36.5); MEAN CORPUSCULAR VOLUME 93.4 FL (78-98); MEAN PLATELET VOLUME 6.2 FL (7.4-10.4); MONOCYTES # (AUTO) 1.1 X10'3 (0-0.9); MONOCYTES % (AUTO) 15.1 % (2-12); NEUTROPHILS # (AUTO) 3.5 X10'3 (1.8-7.7); NEUTROPHILS % (AUTO) 49.2 % (42-75); PLATELET COUNT 269 X10'3 (140-440); RED BLOOD COUNT 3.83 X10'6 (4.70-6.10); RED CELL DISTRIBUTION WIDTH 14.3 % (11.5-14.5); WHITE BLOOD COUNT 7.2 X10'3 (4.5-11.0)
[2024-07-08 05:18] LABS: ALANINE AMINOTRANSFERASE 9 U/L (12-78); ALBUMIN 2.6 G/DL (3.4-5.0); ALBUMIN/GLOBULIN RATIO 0.7 (1.1-1.5); ALKALINE PHOSPHATASE 72 IU/L (46-116); ANION GAP 6 (8-16); ASPARTATE AMINO TRANSFERASE 19 U/L (10-37); BILIRUBIN,TOTAL 0.3 MG/DL (0.1-1.0); BLOOD UREA NITROGEN 10 MG/DL (7-18); BUN/CREATININE RATIO 10.8 (10.0-20.0); CALCIUM 8.3 MG/DL (8.5-10.1); CHLORIDE 104 MMOL/L (99-107); CREATININE 0.93 MG/DL (0.60-1.10); POTASSIUM 4.4 MMOL/L (3.5-5.1); SODIUM 141 MMOL/L (135-145); TOTAL CARBON DIOXIDE 30.8 MMOL/L (24-32); TOTAL PROTEIN 6.6 G/DL (6.4-8.2); eCRCL 67 ML/MIN; eGFR 83 ML/MIN
[2024-07-08 05:37] LABS: GLUCOSE 105 MG/DL (70-104)
[2024-07-08 06:00] VITALS: BP 105/62; PULSE 64; RESP 19; TEMP 98; O2SAT 97
[2024-07-08 07:55] VITALS: RESP 19; O2SAT 97
[2024-07-08] MEDS: normal saline 1000ml 1,000 ML IV SCH (09:04)
[2024-07-08 09:42] LABS: PLATELET ESTIMATE NORMAL; TOTAL CELLS COUNTED 100
[2024-07-08 10:00] VITALS: BP 121/62; PULSE 99; RESP 20; TEMP 98; O2SAT 98
--- NOTE | 2024-07-08 11:10 | RADIOLOGY REPORT ---
Indication: abscess left buttock/gluteal region Technique: CT axial images of the abdomen and pelvis are obtained without intravenous contrast. Tiesha nal and sagittal reformats were obtained. Radiation Dose Information: CTDI volume is 7.7 mGy. Dose-length product is 589 mGy*cm Comparison: CT CT ABDOMEN PELVIS W/ IV CONTRAST on DOS: 07/05/24 FINDINGS: Lung bases demonstrate lower lobe subpleural nodule measuring 12 mm. Adrenal glands unremarkable. Spleen is measuring 13 cm AP. Pancreas and liver unremarkable in shape. No CT evidence for cholelithiasis. No hydronephrosis, nephrolithiasis. Stomach partially distended. Small bowel loops are moderately distended. Moderate volume stool in the colon. No secondary signs for appendicitis. Periaortic/retroperitoneal lymph nodes measuring up to 1.3 cm. Bladder distended. No free pelvic flui d. No inguinal lymphadenopathy. Redemonstration of left gluteal region soft tissue edema and stranding. There is soft tissue emphyse ma in the region of the previously described ill-defined collection. No loculated collection present . The process measures approximately 2.7 x 1.3 cm. There is surrounding subcutaneous soft tissue stra nding with associated skin thickening. There is [id number] bilateral sacroiliac degenerative joint disease. Vcgo-tb-oofnvyrs thoracolu mbar degenerative disc disease. IMPRESSION: Limited evaluation without contrast. 1. Interval development of small loculations of air in the previously described left gluteal region s oft tissue density/edema. This overall measures approximately 2.7 x 1.3 cm, slightly less pronounced on on the previous examination. There is surrounding soft tissue edema and stranding. Correlate for phlegmon, cellulitic change 2. Splenomegaly. 3. Left lower lobe subpleural nodule. 4. Retroperitoneal lymphadenopathy.
[2024-07-08 13:10] VITALS: BP 111/66; PULSE 60; RESP 16; TEMP 97.7; O2SAT 97
[2024-07-08 18:00] VITALS: BP 122/66; PULSE 69; RESP 14; TEMP 98.1; O2SAT 98
--- NOTE | 2024-07-08 18:58 | PROGRESS NOTE- Residence ---
Progress Note - Resident Providers to CC Resident Creating Document: COLE CAMARGO RES ~ Antibiotic Timeout Antibiotic Ordered?: Yes Subjective Patient was seen and examined at bedside. No overnight issues or events reported. Pain is controlled with current management. The wound appear shrunk today, erythema and tenderness has significantly reduced. Patient was re- evaluated by Dr. Toledo yesterday, ordered a repeat CT scan. Objective Vital Signs Date Time Temp Pulse Resp B/P (MAP) Pulse Ox O2 Delivery O2 Flow Rate FiO2 07/08/24 14:00 Room Air 07/08/24 13:10 97.7 60 16 111/66 (74) 97 General Appearance: Well developed, well nourished. Awake, alert and oriented x4, resting comfortably in bed, in no acute distress. Respiratory: Chest wall is symmetric and without deformity. No signs of respiratory distress. Equal breath sounds bilaterally. No wheeze, rub, Rales or crackles. Cardiac: RRR, no murmur, rub or gallop. Normal S1 and S2. GI: No tenderness. Abdomen symmetric, nondistended, soft, normal bowel sounds x4 quadrant normoactive. No guarding, no rebound or rigidity. No hepatosplenomegaly. No masses, no bruit, no flank pain bilaterally. Extremities: Tenderness, surrounding induration, and erythema has significantly reduced in size. Dressing applied Neuro: Speech is clear, alert and oriented x4. No sensory or motor deficit, DTRs normal. Cranial nerves II to XII intact. Psych: Normal affect, good eye contact, no apparent hallucination, normal speech. Result Diagram: 07/08/24 0432 07/08/24 0432 Advance Care Planning Advanced Care plannin - 30 Minutes Assessment Assessment Patient is a 59-year-old male with no significant past medical history who presents for evaluation and management of a draining abscess in the left buttock. He was referred by his primary care provider at [facility]. On exam, there is a 5 x 3 cm fluctuant, mildly tender, draining abscess in the left buttock. There is also surrounding induration and erythema. Erythema measures approximately 13 x 8 cm. The area is warm to touch, with active drainage. Plan Plan Purulent draining abscess left buttock: No signs of sepsis/SIRS CT finding suggests phlegmon, ESR elevated No systemic symptoms Received vancomycin and Zosyn in ER We will continue vancomycin and ceftriaxone We will consult surgeon for I&D - NPO after midnight Wound care consult requested Pain management; [place], and morphine as needed July 06, 2024: Pain controlled with current management Continue vancomycin and ceftriaxone Continue IV hydration Wound care evaluated the patient, applied dressing Wound culture ordered Dr. Toledo consulted for I&D - patient is NPO, not on any blood thinners July 07, 2024: Continue vancomycin and ceftriaxone IV hydration discontinued The patient was seen and examined at the bedside. Although his pain is well controlled and he reports no current issues, he expressed frustration about being NPO yesterday until 7:00 p.m. when the procedure did not occur. The surgeon reviewed the CT scan findings and concluded that I&D was not necessary at this time. On exam, the gluteal abscess remains fluctuant, with an angry appearance, fluid collection, and an overlying black scar with necrotic tissues. I believe the abscess requires I&D, and debridement. We will consult the on-call surgeon again tomorrow for further evaluation. July 08, 2024: Tenderness, erythema, and induration has significantly reduced in size. Appeared shrunk and relatively tried. Re-evaluated by surgeon yesterday, ordered a repeat CT which revealed: 1. Interval development of small loculations of air in the previously described left gluteal region soft tissue density/edema. This overall measures approximately 2.7 x 1.3 cm, slightly less pronounced on on the previous examination. There is surrounding soft tissue edema and stranding. Correlate for phlegmon, cellulitic change 2. Splenomegaly. 3. Left lower lobe subpleural nodule. 4. Retroperitoneal lymphadenopathy DVT prophylaxis: Lovenox Code status: Full code Cole Camargo Internal Medicine Resident Date of Service: July 08, 2024 Billing Provider: ROMEO ART MD, SHAMS, RES July 08, 2024 18:58
[2024-07-08 22:00] VITALS: BP 111/71; PULSE 71; RESP 20; TEMP 98.1; O2SAT 98
[2024-07-09 01:56] LABS: BASOPHILS # (AUTO) 0.1 X10'3 (0-0.2); BASOPHILS % (AUTO) 0.7 % (0-1); EOSINOPHILS # (AUTO) 0.1 X10'3 (0-0.9); EOSINOPHILS % (AUTO) 1.9 % (0-6); HEMATOCRIT 35.2 % (42.0-52.0); HEMOGLOBIN 12.1 g/dl (14.0-17.9); LYMPHOCYTES # (AUTO) 2.6 X10'3 (1.1-4.8); LYMPHOCYTES % (AUTO) 35.4 % (21-51); MEAN CORPUSCULAR HEMOGLOBIN 32.1 PG (27.0-31.0); MEAN CORPUSCULAR HGB CONC 34.5 g/dL (33.0-36.5); MEAN CORPUSCULAR VOLUME 92.9 FL (78-98); NEUTROPHILS # (AUTO) 3.7 X10'3 (1.8-7.7); PLATELET COUNT 290 X10'3 (140-440); RED BLOOD COUNT 3.79 X10'6 (4.70-6.10); RED CELL DISTRIBUTION WIDTH 14.5 % (11.5-14.5); WHITE BLOOD COUNT 7.5 X10'3 (4.5-11.0)
[2024-07-09] MEDS: VANCOMYCIN LEVEL IV ONE (02:14)
[2024-07-09 02:16] LABS: ALANINE AMINOTRANSFERASE 15 U/L (12-78); ALBUMIN 2.8 G/DL (3.4-5.0); ALBUMIN/GLOBULIN RATIO 0.7 (1.1-1.5); ALKALINE PHOSPHATASE 77 IU/L (46-116); ANION GAP 7 (8-16); ASPARTATE AMINO TRANSFERASE 13 U/L (10-37); BILIRUBIN,TOTAL 0.2 MG/DL (0.1-1.0); BLOOD UREA NITROGEN 13 MG/DL (7-18); BUN/CREATININE RATIO 15.9 (10.0-20.0); CALCIUM 8.2 MG/DL (8.5-10.1); CHLORIDE 104 MMOL/L (99-107); CREATININE 0.82 MG/DL (0.60-1.10); SODIUM 141 MMOL/L (135-145); TOTAL CARBON DIOXIDE 29.7 MMOL/L (24-32); TOTAL PROTEIN 6.7 G/DL (6.4-8.2); eCRCL 76 ML/MIN; eGFR > 90 ML/MIN
[2024-07-09 02:18] LABS: GLUCOSE 97 MG/DL (70-104); VANCOMYCIN,TROUGH 15.9 ug/mL (10.0-20.0)
[2024-07-09] MEDS: VANCOMYCIN/H2O 1.25G/250mL PB 250 ML IV ONE (03:21)
[2024-07-09 06:00] VITALS: BP 101/63; PULSE 55; RESP 18; TEMP 97.4; O2SAT 97
[2024-07-09 10:22] VITALS: BP 110/61; PULSE 65; RESP 20; TEMP 98.1; O2SAT 97
[2024-07-09] MEDS ORDERED: SULF1TAB48 PO (10:23)
[2024-07-09] MEDS ORDERED: HYDR-3964 PO (10:23)
--- NOTE | 2024-07-09 10:58 | PROGRESS NOTE- Residence ---
Progress Note - Resident Providers to CC Resident Creating Document: COLE CAMARGO RES ~ Antibiotic Timeout Antibiotic Ordered?: Yes Subjective Patient was seen and examined at bedside. No overnight issues or events reported. Pain is controlled with current management. The wound appear shrunk today, erythema and tenderness has significantly reduced. However, greenish yellow discharge is noticed. Patient was seen by Dr. Toledo, I&D tomorrow. Objective Vital Signs Date Time Temp Pulse Resp B/P (MAP) Pulse Ox O2 Delivery O2 Flow Rate FiO2 07/09/24 10:22 98.1 65 20 110/61 (77) 97 Room Air General Appearance: Well developed, well nourished. Awake, alert and oriented x4, resting comfortably in bed, in no acute distress. Respiratory: Chest wall is symmetric and without deformity. No signs of respiratory distress. Equal breath sounds bilaterally. No wheeze, rub, Rales or crackles. Cardiac: RRR, no murmur, rub or gallop. Normal S1 and S2. GI: No tenderness. Abdomen symmetric, nondistended, soft, normal bowel sounds x4 quadrant normoactive. No guarding, no rebound or rigidity. No hepatosplenomegaly. No masses, no bruit, no flank pain bilaterally. Extremities: Tenderness, surrounding induration, and erythema has significantly reduced in size. Yellow greenish discharge is noticed. Neuro: Speech is clear, alert and oriented x4. No sensory or motor deficit, DTRs normal. Cranial nerves II to XII intact. Psych: Normal affect, good eye contact, no apparent hallucination, normal speech. Result Diagram: 07/09/24 0143 07/09/24 0143 Advance Care Planning Advanced Care plannin - 30 Minutes Assessment Assessment Patient is a 59-year-old male with no significant past medical history who presents for evaluation and management of a draining abscess in the left buttock. He was referred by his primary care provider at [facility]. On exam, there is a 5 x 3 cm fluctuant, mildly tender, draining abscess in the left buttock. There is also surrounding induration and erythema. Erythema measures approximately 13 x 8 cm. The area is warm to touch, with active drainage. Plan Plan Purulent draining abscess left buttock: No signs of sepsis/SIRS CT finding suggests phlegmon, ESR elevated No systemic symptoms Received vancomycin and Zosyn in ER We will continue vancomycin and ceftriaxone We will consult surgeon for I&D - NPO after midnight Wound care consult requested Pain management; [place], and morphine as needed July 06, 2024: Pain controlled with current management Continue vancomycin and ceftriaxone Continue IV hydration Wound care evaluated the patient, applied dressing Wound culture ordered Dr. Toledo consulted for I&D - patient is NPO, not on any blood thinners July 07, 2024: Continue vancomycin and ceftriaxone IV hydration discontinued The patient was seen and examined at the bedside. Although his pain is well controlled and he reports no current issues, he expressed frustration about being NPO yesterday until 7:00 p.m. when the procedure did not occur. The surgeon reviewed the CT scan findings and concluded that I&D was not necessary at this time. On exam, the gluteal abscess remains fluctuant, with an angry appearance, fluid collection, and an overlying black scar with necrotic tissues. I believe the abscess requires I&D, and debridement. We will consult the on-call surgeon again tomorrow for further evaluation. July 08, 2024: Tenderness, erythema, and induration has significantly reduced in size. Appeared shrunk and relatively tried. Re-evaluated by surgeon yesterday, ordered a repeat CT which revealed: 1. Interval development of small loculations of air in the previously described left gluteal region soft tissue density/edema. This overall measures approximately 2.7 x 1.3 cm, slightly less pronounced on on the previous examination. There is surrounding soft tissue edema and stranding. Correlate for phlegmon, cellulitic change 2. Splenomegaly. 3. Left lower lobe subpleural nodule. 4. Retroperitoneal lymphadenopathy July 09, 2024: Yellow greenish discharge noticed from the wound. Wound culture is back, grows Staph aureus resistant to Cipro and erythromycin, sensitive to vancomycin. Ceftriaxone discontinued, we will continue vancomycin Evaluated by Dr. Toledo, I&D tomorrow, keep NPO after midnight DC home after I&D with p.o. Bactrim for 10 days DVT prophylaxis: Lovenox Code status: Full code Cole Camargo Internal Medicine Resident Date of Service: July 09, 2024 Billing Provider: ROMEO ART MD, SHAMS, RES July 09, 2024 10:58
--- NOTE | 2024-07-09 11:34 | PROGRESS NOTE ---
Progress Note ID Providers to CC ~ Progress Note Progress Note: pt needs left hip debridement-discussed procedure including risks/benefits/alternatives JUAN JOSE TRINH MD July 09, 2024 11:34
[2024-07-09 18:00] VITALS: BP 106/63; PULSE 69; RESP 20; TEMP 98.3; O2SAT 96
[2024-07-09 20:00] VITALS: RESP 14; O2SAT 98
[2024-07-09 22:00] VITALS: BP 115/62; PULSE 53; RESP 18; TEMP 99.1; O2SAT 98
[2024-07-09] MEDS: ringers solution, lacted 1,000 ML IV ONE (23:44)
[2024-07-10] VITALS (12 sets, daily range): BP systolic 108–138; BP diastolic 40–71; PULSE 56–82; RESP 15–20; TEMP 97–97.8; O2SAT 93–98
[2024-07-10] MEDS: VANCOMYCIN/H2O 1.25G/250mL PB 250 ML IV ONE (01:09)
[2024-07-10 05:57] LABS: EOSINOPHILS # (AUTO) 0.2 X10'3 (0-0.9); EOSINOPHILS % (AUTO) 2.3 % (0-6); HEMOGLOBIN 12.9 g/dl (14.0-17.9); LYMPHOCYTES # (AUTO) 2.4 X10'3 (1.1-4.8); MEAN CORPUSCULAR VOLUME 92.3 FL (78-98); MONOCYTES # (AUTO) 0.9 X10'3 (0-0.9); MONOCYTES % (AUTO) 13.9 % (2-12); WHITE BLOOD COUNT 6.5 X10'3 (4.5-11.0)
[2024-07-10 06:01] LABS: BASOPHILS % (AUTO) 0.5 % (0-1); LYMPHOCYTES % (AUTO) 36.5 % (21-51); MEAN CORPUSCULAR HEMOGLOBIN 32.2 PG (27.0-31.0); MEAN CORPUSCULAR HGB CONC 34.8 g/dL (33.0-36.5); MEAN PLATELET VOLUME 7.1 FL (7.4-10.4); NEUTROPHILS % (AUTO) 46.8 % (42-75); PLATELET COUNT 254 X10'3 (140-440); RED BLOOD COUNT 4.01 X10'6 (4.70-6.10); RED CELL DISTRIBUTION WIDTH 13.9 % (11.5-14.5)
[2024-07-10 06:29] LABS: ALANINE AMINOTRANSFERASE 18 U/L (12-78); ALBUMIN 2.8 G/DL (3.4-5.0); ALBUMIN/GLOBULIN RATIO 0.7 (1.1-1.5); ALKALINE PHOSPHATASE 80 IU/L (46-116); ANION GAP 10 (8-16); ASPARTATE AMINO TRANSFERASE 20 U/L (10-37); BILIRUBIN,TOTAL 0.4 MG/DL (0.1-1.0); BLOOD UREA NITROGEN 12 MG/DL (7-18); BUN/CREATININE RATIO 15.8 (10.0-20.0); CALCIUM 8.4 MG/DL (8.5-10.1); CHLORIDE 103 MMOL/L (99-107); CREATININE 0.76 MG/DL (0.60-1.10); GLUCOSE 89 MG/DL (70-104); POTASSIUM 4.2 MMOL/L (3.5-5.1); SODIUM 142 MMOL/L (135-145); TOTAL CARBON DIOXIDE 29.5 MMOL/L (24-32); eCRCL 82 ML/MIN; eGFR > 90 ML/MIN
--- NOTE | 2024-07-10 08:37 | ELECTROCARDIOGRAPH REPORT ---
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 Wilson Shipman Measurements Intervals [place] Rate: 58 P: 66 DC: 170 QRS: 60 QRSD: 98 T: 67 QT: 430 QTc: 422 Interpretive Statements Sinus bradycardia Electronically Signed On 07-10-2024 13:15:[address] Wilson Shipman Please click the below link to view image of tracing.
--- NOTE | 2024-07-10 09:59 | RADIOLOGY REPORT ---
EXAM: DI CHEST,SINGLE VIEW HISTORY: PRE OP COMPARISON: None TECHNIQUE: Portable upright AP view of the chest was performed. FINDINGS: No pneumothorax, consolidative infiltrates, or pulmonary edema. The heart is borderline enlarged. The re is thoracic degenerative disc disease. There are multiple old left rib fractures. IMPRESSION: No acute intrathoracic process.
[2024-07-10 10:18] LABS: APTT 29 SECONDS (22-32); PROTHROMBIN TIME 10.5 SECONDS (9.0-12.0)
[2024-07-10] MEDS ORDERED: vancomycin 1,000mg inj ONE (11:26)
--- NOTE | 2024-07-10 11:37 | PROGRESS NOTE- Residence ---
Progress Note - Resident Providers to CC Resident Creating Document: JEREMIAH DIALLO CC: ROMEO ART MD ~ Antibiotic Timeout Antibiotic Ordered?: Yes Subjective Patient was seen and examined at bedside. Patient denies significant pain, he is NPO for I&D today. He denies any other significant complaints Objective Vital Signs Date Time Temp Pulse Resp B/P (MAP) Pulse Ox O2 Delivery O2 Flow Rate FiO2 07/10/24 11:12 97.5 56 18 115/71 (86) 93 Nasal Cannula Result Diagram: 07/10/24 0440 07/10/24 0440 General Appearance: Well developed, well nourished. Awake, alert and oriented x4, resting comfortably in bed, in no acute distress. Respiratory: Chest wall is symmetric and without deformity. No signs of respiratory distress. Equal breath sounds bilaterally. No wheeze, rub, Rales or crackles. Cardiac: RRR, no murmur, rub or gallop. Normal S1 and S2. GI: No tenderness. Abdomen symmetric, nondistended, soft, normal bowel sounds x4 quadrant normoactive. No guarding, no rebound or rigidity. No hepatosplenomegaly. No masses, no bruit, no flank pain bilaterally. Extremities: Patient has a 2x3cm area of necrotic tissue in left buttock with an open wound, clear exudate observed. No significant surrounding erythema or tenderness Neuro: Speech is clear, alert and oriented x4. No sensory or motor deficit, DTRs normal. Cranial nerves II to XII intact. Psych: Normal affect, good eye contact, no apparent hallucination, normal speech. Coagulation Studies Laboratory Tests Test 07/10/24 09:31 Prothrombin Time 10.5 SECONDS (9.0-12.0) INR International Normalized Ratio 1.0 INR Activated Partial Thromboplast Time 29 SECONDS (22-32) Coagulation Comments Assessment Assessment Patient is a 59-year-old male with no significant past medical history who presents for evaluation and management of a draining abscess in the left buttock. Plan Plan Purulent draining abscess left buttock: No signs of sepsis/SIRS CT finding suggests phlegmon, ESR elevated No systemic symptoms Received vancomycin and Zosyn in ER We will continue vancomycin and ceftriaxone We will consult surgeon for I&D - NPO after midnight Wound care consult requested Pain management; [place], and morphine as needed July 06, 2024: Pain controlled with current management Continue vancomycin and ceftriaxone Continue IV hydration Wound care evaluated the patient, applied dressing Wound culture ordered Dr. Toledo consulted for I&D - patient is NPO, not on any blood thinners July 07, 2024: Continue vancomycin and ceftriaxone IV hydration discontinued The patient was seen and examined at the bedside. Although his pain is well controlled and he reports no current issues, he expressed frustration about being NPO yesterday until 7:00 p.m. when the procedure did not occur. The surgeon reviewed the CT scan findings and concluded that I&D was not necessary at this time. On exam, the gluteal abscess remains fluctuant, with an angry appearance, fluid collection, and an overlying black scar with necrotic tissues. I believe the abscess requires I&D, and debridement. We will consult the on-call surgeon again tomorrow for further evaluation. July 08, 2024: Tenderness, erythema, and induration has significantly reduced in size. Appeared shrunk and relatively tried. Re-evaluated by surgeon yesterday, ordered a repeat CT which revealed: 1. Interval development of small loculations of air in the previously described left gluteal region soft tissue density/edema. This overall measures approximately 2.7 x 1.3 cm, slightly less pronounced on on the previous examination. There is surrounding soft tissue edema and stranding. Correlate for phlegmon, cellulitic change 2. Splenomegaly. 3. Left lower lobe subpleural nodule. 4. Retroperitoneal lymphadenopathy July 09, 2024: Yellow greenish discharge noticed from the wound. Wound culture is back, grows Staph aureus resistant to Cipro and erythromycin, sensitive to vancomycin. Ceftriaxone discontinued, we will continue vancomycin Evaluated by Dr. Toledo, I&D tomorrow, keep NPO after midnight DC home after I&D with p.o. Bactrim for 10 days 07/10/2024: Patient going for I&D today Continue vancomycin, day 4 Completed Rocephin Continue wound care DVT prophylaxis: Lovenox Disposition: Continue care in surgical unit. I&D by Dr. Toledo today. Jeremiah Dominguez MD Internal Medicine Resident PGY-1 Date of Service: July 10, 2024 Billing Provider: ROMEO ART MD, LEONARDO LUIS July 10, 2024 11:36
[2024-07-10] MEDS ORDERED: sevoflurane 250ml liquid IH ONE (11:50)
[2024-07-10] MEDS ORDERED: midazolam 1 mg/ML 2ml injection ONE (11:52)
[2024-07-10] MEDS ORDERED: fentaNYL /PF 50mcg/ml 5ml ampule ONE (11:53)
[2024-07-10] MEDS ORDERED: propofol inj 20 ML IV ONE (12:06)
[2024-07-10] MEDS ORDERED: LIDOcaine 2% (20mg/ml) 5ml vial ONE (12:06)
[2024-07-10] MEDS ORDERED: ondansetron/PF 4mg/2ml inj ONE (12:06)
[2024-07-10] MEDS ORDERED: dexamethasone sod phosphate 4mg/ml inj. ONE (12:06)
[2024-07-10] MEDS ORDERED: meperidine/PF 100mg/ml syringe IV PRN (12:10)
[2024-07-10] MEDS ORDERED: HYDROmorphone/PF 0.2 MG/ML SYRINGE IV PRN ×2 (12:10)
[2024-07-10] MEDS ORDERED: ondansetron/PF 4mg/2ml inj IV PRN (12:10)
[2024-07-10] MEDS ORDERED: hydrALAZINE 20mg/ml inj. IV PRN (12:10)
[2024-07-10] MEDS ORDERED: morphine 4 MG/ML inj SYRINge IV PRN (12:10)
[2024-07-10] MEDS ORDERED: labetalol 20mg/4ml (5mg/ml) syringe IV PRN (12:10)
[2024-07-10] MEDS ORDERED: morphine 2 MG/ML inj. syringe IV PRN (12:10)
[2024-07-10] MEDS: ringers solution, lacted 1,000 ML IV SCH (12:10)
[2024-07-10] MEDS ORDERED: proCHLORperazine 10 MG/2 ml inj IV PRN (12:10)
[2024-07-10] MEDS ORDERED: acetaminophen 1,000mg/100ml IV 100 ML IV PRN (12:10)
[2024-07-10] MEDS ORDERED: ceFAZolin 1000mg inj ONE ×2 (12:16)
--- NOTE | 2024-07-10 12:18 | OPERATIVE REPORT ---
Operative Report Providers to CC ~ Date of Procedure: July 10, 2024 Pre-Operative Diagnosis: soft tissue infection left hip Post-Operative Diagnosis SAME as PRE-Op Procedure Performed excisional debridement left hip Surgeon: reji Shuttlecock Assembler camelia Anesthesiologist: Katerin Montes Type of Anesthesia: General Findings: soft tissue infection left hip Estimated Blood Loss: min Specimen Removed: none JUAN JOSE TRINH MD July 10, 2024 12:18
[2024-07-10] MEDS ORDERED: HYDROcodone/acetaminophen 10/325mg tab PO PRN (12:20)
[2024-07-10] MEDS ORDERED: naloxone 0.4 mg/ml inj IV PRN (12:20)
--- NOTE | 2024-07-10 13:37 | OPERATIVE REPORT ---
DATE OF SURGERY: 07/10/2024 DICTATING PHYSICIAN: Daryn Toledo MD PREOPERATIVE DIAGNOSIS: Soft tissue infection, left hip. POSTOPERATIVE DIAGNOSIS: Soft tissue infection, left hip. PROCEDURE PERFORMED: Excision and debridement, soft tissue infection of the left hip including skin, subcutaneous tissue, and fascia. SURGEON: Daryn Toledo MD REFRIGERATION MECHANIC: None. ANESTHESIA: General/Dr. Montes. DRAINS: None. INDICATIONS FOR OPERATION: A 59-year-old male with history of soft tissue infection of the left hip, taken to surgery for debridement. INTRAOPERATIVE FINDINGS: Full-thickness soft tissue infection, left hip. DESCRIPTION OF PROCEDURE: The patient was placed supine on the operating table. After induction of general anesthesia and placement of endotracheal tube, the patient was placed in the lateral position. The left hip was prepped and draped. Soft tissue infection was excised en bloc down to the subcutaneous tissue and fascia. Wounds were irrigated with antibiotic-containing solution, packing in place. Dressing applied. The patient was transferred to the recovery room in stable condition. Daryn Toledo MD TID: [id number] RECEIPT: [id number] KB/VUN
--- NOTE | 2024-07-10 22:16 | CONSULTATION ---
DATE OF CONSULTATION: 07/06/2024 DICTATING PHYSICIAN: Daryn Toledo MD REASON FOR CONSULTATION: Evaluation of left hip abscess. HISTORY OF PRESENT ILLNESS: The patient is a 59-year-old male ____ past medical history, developed a draining wound on his left hip since he was admitted. Surgical evaluation is now requested. Initial CAT scan of the abdomen and pelvis raised the question of a possible abscess versus phlegmon. On further questioning, the patient complains of some drainage. No obvious fever. Some pain associated with it. No history of immune deficiency. PAST MEDICAL HISTORY: Unremarkable. PAST SURGICAL HISTORY: Noncontributory. HOME MEDICATIONS: Include Bactrim. ALLERGIES: None. SOCIAL HISTORY: Occasional alcohol use. REVIEW OF SYSTEMS: See H and P. PHYSICAL EXAMINATION: GENERAL: Well-nourished male, in no distress. VITAL SIGNS: Unremarkable. HEART: Regular rate and rhythm. LUNGS: Clear to auscultation. EXTREMITIES: Left hip has some swelling but no obvious fluctuance, most likely abscess. LABORATORY DATA: Labs include WBC of 7, hematocrit of 35, platelet count 283. Chemistries including ____. Imaging raises the question of a soft tissue infection without clear-cut abscess. IMPRESSION: Soft tissue infection, left hip. RECOMMENDATIONS: Repeat CAT scan in 2-3 days after receiving IV antibiotics. Daryn Toledo MD TID: [id number] RECEIPT: [id number] KB/SUB/AMI
[2024-07-11 06:34] VITALS: BP 113/53; PULSE 59; RESP 18; TEMP 98.2; O2SAT 97
[2024-07-11 08:00] VITALS: RESP 16
[2024-07-11 11:57] LABS: BASOPHILS % (AUTO) 0.4 % (0-1); EOSINOPHILS # (AUTO) 0.1 X10'3 (0-0.9); EOSINOPHILS % (AUTO) 0.5 % (0-6); HEMOGLOBIN 12.4 g/dl (14.0-17.9); LYMPHOCYTES # (AUTO) 2.9 X10'3 (1.1-4.8); MEAN CORPUSCULAR HEMOGLOBIN 31.2 PG (27.0-31.0); MEAN CORPUSCULAR HGB CONC 33.5 g/dL (33.0-36.5); MEAN CORPUSCULAR VOLUME 93.1 FL (78-98); MEAN PLATELET VOLUME 6.2 FL (7.4-10.4); MONOCYTES # (AUTO) 1.2 X10'3 (0-0.9); MONOCYTES % (AUTO) 10.6 % (2-12); NEUTROPHILS # (AUTO) 7.3 X10'3 (1.8-7.7); NEUTROPHILS % (AUTO) 63.5 % (42-75); PLATELET COUNT 359 X10'3 (140-440); RED BLOOD COUNT 3.97 X10'6 (4.70-6.10); RED CELL DISTRIBUTION WIDTH 14.2 % (11.5-14.5); WHITE BLOOD COUNT 11.5 X10'3 (4.5-11.0)
[2024-07-11 12:26] LABS: ALANINE AMINOTRANSFERASE 25 U/L (12-78); ALBUMIN 2.9 G/DL (3.4-5.0); ALBUMIN/GLOBULIN RATIO 0.7 (1.1-1.5); ALKALINE PHOSPHATASE 86 IU/L (46-116); ANION GAP 6 (8-16); ASPARTATE AMINO TRANSFERASE 20 U/L (10-37); BILIRUBIN,TOTAL 0.3 MG/DL (0.1-1.0); BLOOD UREA NITROGEN 11 MG/DL (7-18); BUN/CREATININE RATIO 15.3 (10.0-20.0); CALCIUM 8.4 MG/DL (8.5-10.1); CHLORIDE 103 MMOL/L (99-107); CREATININE 0.72 MG/DL (0.60-1.10); POTASSIUM 3.7 MMOL/L (3.5-5.1); SODIUM 140 MMOL/L (135-145); TOTAL PROTEIN 7.2 G/DL (6.4-8.2); eCRCL 87 ML/MIN; eGFR > 90 ML/MIN
[2024-07-11 12:28] LABS: GLUCOSE 109 MG/DL (70-104)
[2024-07-11] MEDS: ceFAZolin/D5W- 1GM premix 50 ML IV SCH (15:55)
[2024-07-11 18:00] VITALS: BP 115/66; PULSE 57; RESP 18; TEMP 97; O2SAT 98
--- NOTE | 2024-07-11 19:05 | PROGRESS NOTE- Residence ---
Progress Note - Resident Providers to CC Resident Creating Document: COLE CAMARGO RES ~ Antibiotic Timeout Antibiotic Ordered?: Yes Subjective Patient was seen and examined at bedside. Underwent excisional debridement yesterday. Denies any pain. Doing well, afebrile, normotensive Underwent excisional debridement yesterday Wound culture grew MSSA - Dr. Trinidad recommended cefazolin DC tomorrow with wound care appointment Objective Vital Signs Date Time Temp Pulse Resp B/P (MAP) Pulse Ox O2 Delivery O2 Flow Rate FiO2 07/11/24 08:00 16 Room Air 07/11/24 06:34 98.2 59 113/53 (73) 97 07/10/24 12:40 6.0 General Appearance: Well developed, well nourished. Awake, alert and oriented x4, resting comfortably in bed, in no acute distress. Respiratory: Chest wall is symmetric and without deformity. No signs of respiratory distress. Equal breath sounds bilaterally. No wheeze, rub, Rales or crackles. Cardiac: RRR, no murmur, rub or gallop. Normal S1 and S2. GI: No tenderness. Abdomen symmetric, nondistended, soft, normal bowel sounds x4 quadrant normoactive. No guarding, no rebound or rigidity. No hepatosplenomegaly. No masses, no bruit, no flank pain bilaterally. Extremities: Patient has a 2x3cm area of necrotic tissue in left buttock with an open wound, clear exudate observed. No significant surrounding erythema or tenderness Neuro: Speech is clear, alert and oriented x4. No sensory or motor deficit, DTRs normal. Cranial nerves II to XII intact. Psych: Normal affect, good eye contact, no apparent hallucination, normal speech. Result Diagram: 07/11/24 1124 07/11/24 1124 Coagulation Studies Laboratory Tests Test 07/10/24 09:31 Prothrombin Time 10.5 SECONDS (9.0-12.0) INR International Normalized Ratio 1.0 INR Activated Partial Thromboplast Time 29 SECONDS (22-32) Coagulation Comments Advance Care Planning Advanced Care plannin - 30 Minutes Assessment Assessment Patient is a 59-year-old male with no significant past medical history who presents for evaluation and management of a draining abscess in the left buttock. Plan Plan Purulent draining abscess left buttock: No signs of sepsis/SIRS CT finding suggests phlegmon, ESR elevated No systemic symptoms Received vancomycin and Zosyn in ER We will continue vancomycin and ceftriaxone We will consult surgeon for I&D - NPO after midnight Wound care consult requested Pain management; [place], and morphine as needed July 06, 2024: Pain controlled with current management Continue vancomycin and ceftriaxone Continue IV hydration Wound care evaluated the patient, applied dressing Wound culture ordered Dr. Toledo consulted for I&D - patient is NPO, not on any blood thinners July 07, 2024: Continue vancomycin and ceftriaxone IV hydration discontinued The patient was seen and examined at the bedside. Although his pain is well controlled and he reports no current issues, he expressed frustration about being NPO yesterday until 7:00 p.m. when the procedure did not occur. The surgeon reviewed the CT scan findings and concluded that I&D was not necessary at this time. On exam, the gluteal abscess remains fluctuant, with an angry appearance, fluid collection, and an overlying black scar with necrotic tissues. I believe the abscess requires I&D, and debridement. We will consult the on-call surgeon again tomorrow for further evaluation. July 08, 2024: Tenderness, erythema, and induration has significantly reduced in size. Appeared shrunk and relatively tried. Re-evaluated by surgeon yesterday, ordered a repeat CT which revealed: 1. Interval development of small loculations of air in the previously described left gluteal region soft tissue density/edema. This overall measures approximately 2.7 x 1.3 cm, slightly less pronounced on on the previous examination. There is surrounding soft tissue edema and stranding. Correlate for phlegmon, cellulitic change 2. Splenomegaly. 3. Left lower lobe subpleural nodule. 4. Retroperitoneal lymphadenopathy July 09, 2024: Yellow greenish discharge noticed from the wound. Wound culture is back, grows Staph aureus resistant to Cipro and erythromycin, sensitive to vancomycin. Ceftriaxone discontinued, we will continue vancomycin Evaluated by Dr. Toledo, I&D tomorrow, keep NPO after midnight DC home after I&D with p.o. Bactrim for 10 days July 10, 2024: Patient going for I&D today Continue vancomycin, day 4 Completed Rocephin Continue wound care July 11, 2024: Soft tissue infection of left hip, per surgeon Doing well, afebrile, normotensive Underwent excisional debridement yesterday Wound culture grew MSSA - Dr. Trinidad recommended cefazolin DC tomorrow with wound care appointment DVT prophylaxis: Lovenox Disposition: Continue care in surgical unit. I&D by Dr. Toledo today. [facility] Internal Medicine Resident Date of Service: July 11, 2024 Billing Provider: ROMEO ART MD,COLE, RES July 11, 2024 19:05
[2024-07-11 20:30] VITALS: RESP 16
[2024-07-11 22:00] VITALS: BP 110/57; PULSE 61; RESP 19; TEMP 98.4; O2SAT 97
[2024-07-12 08:00] VITALS: RESP 16; O2SAT 96
--- NOTE | 2024-07-12 10:14 | DISCHARGE SUMMARY-Residence ---
Discharge Summary Providers to CC Resident Creating Document: COLE ELIZALDE RES ~ Discharge Summary Admission Diagnosis: soft tissue infection left hip Hospital Course DATE OF ADMISSION: July 05, 2024 DATE OF DISCHARGE: July 11, 2024 Discharge Diagnosis\Comment: Purulent draining abscess left hip/gluteal region Operations\Procedures: incision and drainage Consultants: Dr. Toledo Complications: None Condition on DC: Stable New Medications: Hydrocodone Bit/Acetaminophen (Hydrocodon-Acetaminophen 5-325) 5 Mg-325 Mg Tablet 1 TAB PO Q6H PRN for MODERATE PAIN 4-6 for 10 Days, #14 TAB Continued Medications: Acetaminophen (Tylenol) 325 Mg Tablet 650 MG PO Q6H PRN PAIN, TAB Sulfamethoxazole/Trimethoprim (Bactrim 400-80 Mg Tablet) 400 Mg-80 Mg Tablet 2 TAB PO Q12H for 10 Days, #20 TAB (This prescription has been renewed) Discharge Summary: History of present illness: Patient is a 59-year-old male with no significant past medical history who presents for evaluation and management of a draining abscess in the left buttock. He was referred by his primary care provider at [facility]. The patient reports administering testosterone injection into his buttocks twice weekly and suspects this may have contributed to the abscess. Approximately two weeks ago, he noticed a small pimple in the area which later popped. Over the following days, he developed increasing swelling irritation and pain. He was evaluated by his primary care physician and started on Bactrim one week ago. Despite antibiotic therapy, the abscess continued to enlarge, becoming very painful and eventually draining purulent material spontaneously. He attempted to manage it at home with Sitz baths, but symptoms persisted. Today, due to ongoing drainage and discomfort, he followed with his primary care physician and was referred to [facility] for further evaluation and management. Hospital course: Patient was admitted for evaluation and management of a draining abscess on left hip/gluteal region. No systemic symptoms, no signs of sepsis/SIRS. CT finding suggests phlegmon, ESR elevated. After taking so for the wound culture, vancomycin and ceftriaxone initiated. Dr. Toledo was consulted, who recommended against intervention. Tenderness, erythema, and induration has significantly reduced in size. On July 08, 2024, wound appeared shrunk and relatively dried, however, repeated CT showed nterval development of small loculations of air in the previously described left gluteal region soft tissue density/edema. Dr. Toledo re-evaluated the patient, undergone I&D. Wound culture grew MSSA, resistant only to Cipro and Erythromycin. Antibiotics adjusted accordingly; vancomycin discontinued and cefazolin initiated. Discharge course: Patient is stable, not in pain. Dressing is dry and clean without any leakage or discharge. Follow up wound care appointments were arranged. He was discharged with the following instructions: OUT PATIENT WOUND CARE APPOINTMENT, THURSDAY, 07/13 AT 0930. [facility] ([phone]) Keep the wound clean and dry, avoid soaking the wound in water for example baths, swimming pools until cleared by your doctor. You may shower but cover the wound with a waterproof dressing. Strictly follow your wound care appointments. Monitor for signs of infection. Call your doctor if you notice increased redness, warmth, swelling, foul odor, thick drainage especially yellow or green, or if you develop a fever. Keep all follow up appointments for wound evaluation and debridement. Follow up with your primary care doctor in one week. Your CT scan showed Left lower lobe subpleural nodule, discuss the findings with your primary care doctor and have a follow up. Discharge physical exam: Vital Signs Date Time Temp Pulse Resp B/P (MAP) Pulse Ox O2 Delivery O2 Flow Rate FiO2 07/11/24 22:00 98.4 61 19 110/57 (74) 97 Room Air 07/10/24 12:40 6.0 General: Awake and Alert, no acute distress. HEENT: Conjunctiva pink, Sclera clear, Mucus Membranes moist. Neck: Supple without masses and tenderness. Resp: Unlabored. Lungs clear to auscultation bilaterally. Heart: Regular Rate and rhythm, normal S1 and S2 without murmur, rub or gallop. Abdomen: Soft and non tender no organomegaly Extremities: Dressing applied on left hip, post I&D. Dry and clean, no leakage or discharge. Skin: Warm and Dry. Imaging studies: Abdomen/Pelvis CT performed on July 08, 2024: FINDINGS: Lung bases demonstrate lower lobe subpleural nodule measuring 12 mm. Adrenal glands unremarkable. Spleen is measuring 13 cm AP. Pancreas and liver unremarkable in shape. No CT evidence for cholelithiasis. No hydronephrosis, nephrolithiasis. Stomach partially distended. Small bowel loops are moderately distended. Moderate volume stool in the colon. No secondary signs for appendicitis. Periaortic/retroperitoneal lymph nodes measuring up to 1.3 cm. Bladder distended. No free pelvic fluid. No inguinal lymphadenopathy. Redemonstration of left gluteal region soft tissue edema and stranding. There is soft tissue emphysema in the region of the previously described ill-defined collection. No loculated collection present. The process measures approximately 2.7 x 1.3 cm. There is surrounding subcutaneous soft tissue stranding with associated skin thickening. There is [id number] bilateral sacroiliac degenerative joint disease. [id number] thoracolumbar degenerative disc disease. IMPRESSION: Limited evaluation without contrast. 1. Interval development of small loculations of air in the previously described left gluteal region soft tissue density/edema. This overall measures approximately 2.7 x 1.3 cm, slightly less pronounced on on the previous examination. There is surrounding soft tissue edema and stranding. Correlate for phlegmon, cellulitic change 2. Splenomegaly. 3. Left lower lobe subpleural nodule. 4. Retroperitoneal lymphadenopathy. *Problems/Diagnosis: (1) Left buttock abscess Status: Acute Total Time Spent on D/C: Up to 30 Minutes Date of Service: July 12, 2024 Billing Provider: ROMEO ART MD, SHAMS, RES July 12, 2024 10:14
[2024-07-12] MEDS ORDERED: CLIN150C2 PO (12:02)
== END 2024-07-12 12:25 | disposition home health service (06) | DRG 571 ==
LOC: ER 10:50 → ED HOLD 17:08 → ORTHO 4S 19:08 → SUR 3N 07-08 12:08
PROVIDERS: ADMIT Family Medicine; ATTEND Family Medicine
PROC: BW211ZZ Computerized Tomography (CT Scan) of Abdomen and Pelvis using Low Osmolar Contrast (ICD-10-PCS; 2024-07-05)
PROC: BW211ZZ Computerized Tomography (CT Scan) of Abdomen and Pelvis using Low Osmolar Contrast (ICD-10-PCS; 2024-07-08)
PROC: 0JB90ZZ Excision of Buttock Subcutaneous Tissue and Fascia, Open Approach (ICD-10-PCS; principal; 2024-07-10 11:50)
DX: L03.317 Cellulitis of buttock (principal); L02.416 Cutaneous abscess of left lower limb; L02.31 Cutaneous abscess of buttock; Z79.899 Other long term (current) drug therapy
CPT/HCPCS: 96365; 99285; Z7506; 36415; 71045; 74176; 74177; 80048; 80053; 80061; 80202; 80305; 82948; 83036; 83605; 84145; 85007; 85025; 85610; 85651; 85730; 86140; 87040; 87070; 87075; 87077; 87081; 87186; 93005; A4618; A6196; A6213; A6446; A6449; A7000; G0378; J0690; J0696; J1100; J1650; J2003; J2250; J2405; J2543; J2704; J3010; J3370; J7030; J7040; J7120; Q9967